=== PATIENT | male | born 1940 | race Caucasian/White ===

== ENCOUNTER 2024-06-11 14:51 | Emergency (ER) | payer MEDICARE, OTHER, SELFPAY ==
[2024-06-11] VITALS (8 sets, daily range): BP systolic 123–147; BP diastolic 66–78; PULSE 72–86; RESP 16–25; TEMP 36.1–37.1; O2SAT 93–96; BMI 28.9
--- NOTE | 2024-06-11 15:29 | EKG12_ITS ---
Test Reason : Blood Pressure : */* mmHG Vent. Rate : 83 BPM Atrial Rate : * BPM P-R Int : * ms QRS Dur : 130 ms QT Int : 468 ms P-R-T Axes : * -15 120 degrees QTcB Int : 549 ms Normal sinus rhythm with 1st degree A-V block Left ventricular hypertrophy with QRS widening ( Sokolow-Rm , [employer] product ) Cannot rule out Septal infarct , age undetermined T wave abnormality, consider lateral ischemia Abnormal ECG Confirmed by Balta Nicholson ([id number]), editor news DENISE GUTIERREZ ([id number]) on 06/12/2024 12:46:34 PM Referred By: ZULY Confirmed By: Balta Nicholson
--- NOTE | 2024-06-11 15:29 | EX.ED.DYSGE1 ---
HPI History of Present Illness Chief Complaint: Abn Labs Informant: patient Narrative Narrative: Sent in by PCP Dr. Roberts for evaluation. History of coronary disease current bypass 2020 x 3 carotid endarterectomy previously. Reports in April while in [place] preparations for revision of left carotid he reported chest pains to the anesthesiologist, procedure was put on hold. He was evaluated in the hospital found to be anemic with hemoglobin of 6.4, upper and lower scopes performed they found gastric ulcers which were cauterized is currently on a PPI. He states he did have black stools prior to that. None since then. He had cardiac cath end of April at the hospital with no blockages reported likely from his anemia. He states while in the hospital was given 1 unit of blood. 9 days ago reported labs were obtained in [place] it was 7.5. He still had fatigue needing rest after stairs since his heart attack. Denies chest tightness denies dyspnea. Denies urinary symptoms. Saw his PCP today had labs drawn outpatient however was recommended to come to the ED. Denies any abdominal pain denies any black or bloody stools. Prior similar symptoms: Yes PFSH PFSH Medical History (Updated 06/11/24 @ 19:[address] Jarocho Ralph DO) Hypertension Diabetes type [address] elevation (STEMI) myocardial infarction Bladder cancer Triple vessel coronary artery disease Allergy/AdvReac Type Severity Reaction Status Date / Time No Known Allergies Allergy Verified 06/11/24 14:57 Surgical History (Updated 06/11/24 @ 19:[address] Jarocho Ralph DO) History of coronary artery stent placement Social History Smoking Status: Never smoker ROS ROS ED Constitutional Constitutional ED: Reports other Details: Fatigue ; Denies chills, fever(s) or sweats ENT ENT ED: Denies sore throat Cardiovascular Cardiovascular: Denies chest pain, leg edema, palpitations or racing heartbeat Respiratory/Chest Respiratory/Chest: Denies cough, dyspnea or dyspnea on exertion Gastrointestinal Gastrointestinal: Denies abdominal pain, diarrhea, nausea or vomiting Genitourinary Genitourinary ED: Denies dysuria, hematuria or urinary frequency Musculoskeletal Musculoskeletal: Denies back pain, extremity pain or neck pain Integumentary Denies rash or wounds Neurologic Neurologic: Denies headache(s), paresthesias or weakness EXAM Physical Exam Const Vital Signs: 06/11/24 14:58 06/11/24 15:44 06/11/24 16:56 Temperature 97 F L Temperature Source Temporal Pulse Rate 86 80 Respiratory Rate 18 23 H Respiratory Pattern Normal Blood Pressure 123/66 H 142/66 H Blood Pressure Mean 85 91 Blood Pressure Source Blood Pressure Position Blood Pressure Location Pulse Ox 96 93 Oxygen Delivery Method Room Air Room Air 06/11/24 17:39 06/11/24 17:54 06/11/24 18:00 Temperature 98.7 F 97.9 F Temperature Source Oral Oral Pulse Rate 81 74 74 Respiratory Rate 25 H 18 25 H Respiratory Pattern Blood Pressure 142/69 H 139/71 H 129/73 H Blood Pressure Mean 93 93 91 Blood Pressure Source Monitor Monitor Blood Pressure Position Semi-Fowlers Semi-Fowlers Blood Pressure Location Right Arm Right Arm Pulse Ox 94 94 94 Oxygen Delivery Method Room Air Room Air Room Air 06/11/24 18:54 06/11/24 19:27 06/11/24 20:12 Temperature 98.4 F 98.6 F 97.9 F Temperature Source Oral Oral Pulse Rate 79 72 74 Respiratory Rate 23 H 22 H 16 Respiratory Pattern Blood Pressure 138/70 H 146/78 H 147/77 H Blood Pressure Mean 92 100 100 Blood Pressure Source Monitor Monitor Blood Pressure Position Semi-Fowlers Supine Blood Pressure Location Right Arm Right Arm Pulse Ox 93 96 95 Oxygen Delivery Method Room Air Room Air Positive well nourished and well developed General Appearance ED: well developed, NAD and pallor HEENT Reports moist mucous membranes normocephalic and atraumatic Eyes General Eye ED: Yes normal appearance of both eyes and pale conjunctiva Neck full ROM Chest Wall Chest: Negative for tenderness Resp normal respiratory effort and normal air movement Effort and Inspection: symmetric chest movement; Negative for respiratory distress Cardio regular rate, regular rhythm and no murmurs Peripheral Pulses: pulses 2+ throughout GI normal to inspection, nondistended, normoactive bowel sounds and non-tender Palpation: Negative for guarding or rebound tenderness present Extremity normal to inspection General Extremety ED: Negative for edema or tenderness General Extremity: Negative for edema Neuro oriented x3 and no sensory deficits noted Sensorium / Orientation: awake and alert Skin General Skin Exam: pallor MDM MDM MDM Narrative Medical decision making narrative: Interventions / MDM: Differential diagnosis: Symptomatic anemia, history of coronary disease Diagnosis considered but do not suspect: No reported rectal bleeding since April. My EKG interpretation: N/A Imaging independently reviewed and interpreted by myself: N/A External documents reviewed: N/A Test considered but not ordered:N/A ED course: Vital stable. Clinical pallor, concerns for symptomatic anemia who does have bypass history. Most recent reported hemoglobin 7.5. Will check EKG will check labs with type and screen. 164: Hemoglobin 7.0 MCV of 74.9. I sent for iron studies. 1 unit ordered consent obtained. He states he is currently on iron once a day prior to his anemia. He is also on B12 injections. I will speak with his primary care team for close follow-up. 1999: In the interim I did speak with covering PCP Dr. Mejia, recommended performing Hemoccult with his history. He states is negative can follow-up in the office. Hemoccult obtained and negative. Iron studies returned iron low at 14 normal TIBC and ferritin level. Vitals remained stable. Patient discharged with outpatient follow-up. Re-evaluation: stable Disposition discussed with patient/family/significant other: Patient Case discussed with consulting clinician: Primary care team This note was generated with [employer] dictation software. It may contain incorrect words, spelling, and punctuation that were not noted in checking the note before signing. Vitals Lab Data Attestation: I reviewed the patient's lab results. Labs: Laboratory Results - last 24 hr 06/11/24 15:37 WBC 7.0 RBC 3.39 L Hgb 7.0 L Hct 25.4 L MCV 74.9 L MCH 20.6 L MCHC 27.6 L RDW Std Deviation 50.4 H RDW Coeff of [place] 18.6 H Plt Count 243 MPV 10.2 Immature Gran % (Auto) 0.300 Neut % (Auto) 83.1 H Lymph % (Auto) 7.6 L Fajardo % (Auto) 7.4 Eos % (Auto) 1.0 Baso % (Auto) 0.6 Absolute Neuts (auto) 5.8 Absolute Lymphs (auto) 0.53 L Nucleated RBC % 0.3 PT 14.1 INR 1.1 APTT 33.5 Sodium 139 Potassium 4.0 Chloride 104 Carbon Dioxide 20.4 L Anion Gap 15 BUN 27 H Creatinine 1.52 H Estim Creat Clear Calc 43.63 L Est GFR (MDRD) Non-Af 45 L BUN/Creatinine Ratio 17.6 Glucose 211 H Calcium 8.9 Iron 14 L TIBC 441 Iron Saturation 3.0 L Unsaturated IBC 427 Ferritin 46 Vitamin B12 562 Blood Type O POSITIVE Antibody Screen NEGATIVE Crossmatch See Detail Discharge Plan Triage Chief Complaint: Abn Labs ED Provider: Jarocho Ralph Dx/Rx/DC Orders Clinical Impression: Anemia, Hx of CABG Instructions: Anemia Primary Care Provider: Serafin Roberts Referrals: Serafin Roberts MD [Primary Care Provider] - 3-5 Days Activity Restrictions/Additional Instructions: Hemoglobin 7. Hemoccult negative. Status post 1 unit of blood. Ferritin level 46, TIBC 441, iron of 14. Discussed with Dr. Mejia, follow-up with Dr. Roberts further treatment options. Print Language: Tamazight Disposition Disposition: Home, Self Care Discharge Date/Time: 06/11/24 20:13
[2024-06-11 15:48] LABS: Absolute Lymphocyte Count 0.53 X10^3/uL (0.83-4.51); Absolute Neutrophil Count 5.8 X10^3/uL (2.0-7.7); Basophil# 0.04 X10^3/uL; Basophil% 0.6 % (0-1); Eosinophil# 0.07 X10^3/uL; Hematocrit 25.4 % (40-54); Lymphocyte # 0.53 X10^3/ul (0.83-4.51); Lymphocyte % 7.6 % (19-41); Mean Corp Hgb Conc 27.6 g/dL (32-36); Mean Corpuscular Hgb 20.6 pg (27.0-32.0); Mean Corpuscular Volume 74.9 fL (80-94); Mean Platelet Vol. 10.2 fl (6.2-12.0); Monocyte# 0.52 X10^3/uL; Monocyte% 7.4 % (0-10); NRBC Flagged by Analyzer 0.3 % (0-5); Neutrophil % 83.1 % (47-70); POSITIVE DIFFERENTIAL YES; Platelet Count 243 K/mm3 (150-450); RBC Distribution Width CV 18.6 % (11.6-14.6); RBC Distribution Width SD 50.4 fl (35.1-43.9); Red Blood Count 3.39 M/mm3 (4.6-6.2)
[2024-06-11 16:10] LABS: International Normalized Ratio 1.1; Prothrombin Time (Protime)PT. 14.1 SECONDS (11.7-14.9)
[2024-06-11 16:11] LABS: Partial Thromboplast Time 33.5 Seconds (24.1-36.2)
[2024-06-11 16:12] LABS: Anion Gap 15 (5-15); BUN 27 mg/dL (4-19); BUN/Creat Ratio 17.6 RATIO (10-20); Calcium,Total 8.9 mg/dL (7.6-11.0); Carbon Dioxide 20.4 mmol/L (21.0-32.0); Chloride 104 mmol/L (98-108); Creatinine, Serum 1.52 mg/dL (0.70-1.20); EST Glomerular Filtration Rate 45 (>60); Estimated Creatinine Clearance 43.63 ml/min (50-250); Glucose 211 mg/dL (70-99); Sodium Level 139 mmol/L (133-145)
[2024-06-11 17:42] LABS: Iron 14 ug/dL (65-175); Iron Binding Capacity,Total 441 ug/dL (250-450); Iron Binding Capacity,Unsat 427 ug/dL (228-428); Vitamin B12 562 pg/mL (180-914)
[2024-06-11 18:03] LABS: Ferritin 46 ng/mL (37-417)
[2024-06-13 13:08] LABS: Folate, RBC (Hct) Test 23.6 % (37.5-51.0); Folates, RBC Test 1360 ng/mL (>498)
== END 2024-06-11 20:13 | disposition home or self-care (01) ==
PROVIDERS: Emergency Provider Emergency Medicine; PCP Family Medicine; Visit Provider Emergency Medicine
DX: D64.9 Anemia, unspecified (principal); E11.9 Type 2 diabetes mellitus without complications; I25.10 Atherosclerotic heart disease of native coronary artery without angina pectoris; Z95.1 Presence of aortocoronary bypass graft; R79.9 Abnormal finding of blood chemistry, unspecified; Z98.890 Other specified postprocedural states; I10 Essential (primary) hypertension
CPT/HCPCS: 80048; 82274; 82607; 82728; 82747; 83540; 83550; 85014; 85025; 85610; 85730; 86850; 86900; 86901; 86920; 86922; 93005; 99284; P9016; A4216

== ENCOUNTER 2024-06-19 09:08 | Outpatient (CLI) | payer MEDICARE, OTHER, SELFPAY ==
[2024-06-19 09:25] VITALS: BP 108/49; PULSE 65; RESP 16; TEMP 36; O2SAT 95; BMI 28.2
[2024-06-19 10:08] VITALS: BP 106/49; PULSE 60; RESP 14; TEMP 36.2; O2SAT 95
[2024-06-19 11:05] VITALS: BP 123/56; PULSE 62; RESP 16; TEMP 36.1; O2SAT 95
== END 2024-06-19 23:59 | disposition home or self-care (01) ==
LOC: MEDOUTP 09:09
PROVIDERS: PCP Family Medicine; Referring Provider Specialist; Visit Provider Specialist
DX: D50.9 Iron deficiency anemia, unspecified (principal)
CPT/HCPCS: 36430; 86850; 86900; 86901; P9016; A4216